=== PATIENT | male | born 1965 | race Caucasian/White ===

== ENCOUNTER 2022-07-07 10:01 | Inpatient (IN) | payer OTHER ==
[2022-07-07 13:13] VITALS: BMI 23.7
[2022-07-07] MEDS ORDERED: MAGNESIUM CITRATE 300 ML BOTTLE PO PRN (15:04)
[2022-07-07] MEDS ORDERED: IBUPROFEN 400 MG TABLET (FP) PO PRN ×2 (15:04)
[2022-07-07] MEDS ORDERED: ACETAMINOPHEN 325 MG TABLET (FP) PO PRN ×2 (15:04)
[2022-07-07] MEDS ORDERED: METHOCARBAMOL 500 MG TABLET PO PRN (15:04)
[2022-07-07] MEDS ORDERED: hydrOXYzine PAMOATE 25 MG CAPSULE (FP) PO PRN (15:04)
[2022-07-07] MEDS ORDERED: LOPERAMIDE HCL 2 MG CAPSULE PO PRN (15:04)
[2022-07-07] MEDS ORDERED: IBUPROFEN 600 MG TABLET (FP) PO PRN (15:04)
[2022-07-07] MEDS ORDERED: DICYCLOMINE HCL 10 MG CAPSULE PO PRN (15:04)
[2022-07-07] MEDS ORDERED: ONDANSETRON *ODT* 4 MG TABLET SL PRN (15:04)
[2022-07-07] MEDS ORDERED: MAGNESIUM HYDROX 2400MG/30ML ORAL SUSPENSION 30 ML CUP PO PRN (15:04)
[2022-07-07] MEDS ORDERED: guaiFENesin 200 MG/10 ML 10 ML UNIT-DOSE CUPS PO PRN (15:04)
[2022-07-07] MEDS ORDERED: P-EPHED 60MG/TRIPROLIDI 2.5MG TABLET PO PRN (15:04)
[2022-07-07] MEDS ORDERED: BISMUTH SUBSALICYLATE 524 MG/30 ML PO PRN (15:04)
[2022-07-07] MEDS ORDERED: MAG HYDROX/AL HYDROX/SIMETH 30 ML UNIT-DOSE CUP PO PRN (15:04)
[2022-07-07] MEDS ORDERED: BENZOCAINE/MENTHOL (CHLORASEPTIC ) LOZENGE MM PRN (15:04)
[2022-07-07] MEDS: MELATONIN 5 MG TABLETS PO PRN (22:14)
[2022-07-07] MEDS: THIAMINE HCL 100 MG TABLET (FP) PO SCH (22:14)
[2022-07-07] MEDS: MIRTAZAPINE 15 MG TABLET (FP) PO SCH (22:14)
[2022-07-08 07:15] VITALS: RESP 18
[2022-07-08] MEDS ORDERED: BENZTROPINE MESYLATE 1 MG TABLET PO SCH (10:00)
[2022-07-08] MEDS ORDERED: BENZTROPINE MESYLATE 2 MG TABLET PO SCH (10:00)
[2022-07-08] MEDS ORDERED: risperiDONE 2 MG TABLET PO SCH (10:00)
[2022-07-08] MEDS ORDERED: BENZTROPINE MESYLATE 0.5 MG TABLET (FP) PO SCH (11:07)
[2022-07-08] MEDS: risperiDONE 1 MG TABLET PO SCH ×2 (13:28→21:15)
[2022-07-08] MEDS: PRENATAL VITAMINS W/ FOLIC ACID TABLET (FP) PO SCH (13:29)
[2022-07-08 14:28] LABS: HEMATOCRIT 39.8 % (35.4-49); MCH 27.6 pg (25.7-33.7); MCHC 32.7 g/dl (32.0-35.9); MEAN CELL VOLUME 84.4 fl (80-96); MEAN PLT VOLUME 8.7 fl (7.5-11.1); PLATELET COUNT 246 10^3/uL (134-434); RBC 4.72 M/mm3 (4.00-5.60); RDW 14.7 % (11.9-15.9); WHITE BLOOD COUNT 7.2 K/mm3 (4.0-10.0)
[2022-07-08 14:31] LABS: CALCIUM 8.5 mg/dL (8.5-10.1)
[2022-07-08 14:32] LABS: ALBUMIN 2.8 g/dl (3.4-5.0); BLOOD UREA NITROGEN 10.8 mg/dL (7-18)
[2022-07-08 14:35] LABS: CREATININE 0.9 mg/dL (0.55-1.3)
[2022-07-08 14:37] LABS: BILIRUBIN,TOTAL 0.4 mg/dL (0.2-1); TOT PROT 6.2 g/dl (6.4-8.2)
[2022-07-08] MEDS: MIRTAZAPINE 15 MG TABLET (FP) PO SCH (21:15)
[2022-07-08] MEDS: BENZTROPINE MESYLATE 1 MG TABLET PO SCH (21:16)
[2022-07-08] MEDS: THIAMINE HCL 100 MG TABLET (FP) PO SCH (21:17)
[2022-07-09] MEDS: BENZTROPINE MESYLATE 1 MG TABLET PO SCH ×2 (09:59→22:41)
[2022-07-09] MEDS: PRENATAL VITAMINS W/ FOLIC ACID TABLET (FP) PO SCH (09:59)
[2022-07-09] MEDS: risperiDONE 1 MG TABLET PO SCH ×2 (09:59→22:41)
[2022-07-09] MEDS: MIRTAZAPINE 15 MG TABLET (FP) PO SCH (22:41)
[2022-07-09] MEDS: THIAMINE HCL 100 MG TABLET (FP) PO SCH (22:41)
[2022-07-09] MEDS: MELATONIN 5 MG TABLETS PO PRN (22:42)
[2022-07-10] MEDS: risperiDONE 1 MG TABLET PO SCH (10:32)
[2022-07-10] MEDS: PRENATAL VITAMINS W/ FOLIC ACID TABLET (FP) PO SCH (10:32)
[2022-07-10] MEDS: BENZTROPINE MESYLATE 1 MG TABLET PO SCH (10:33)
[2022-07-10 13:03] VITALS: BP 138/81; PULSE 74; TEMP 97.7
== END 2022-07-10 13:23 | disposition home or self-care (01) | DRG 896 ==
LOC: YASAS 10:01 → Y3N 15:39
PROVIDERS: ADMIT Allergy & Immunology; ATTEND Surgery
PROC: HZ2ZZZZ Detoxification Services for Substance Abuse Treatment (ICD-10-PCS; principal; 2022-07-07)
DX: F10.230 Alcohol dependence with withdrawal, uncomplicated (principal); U07.1 COVID-19; E46 Unspecified protein-calorie malnutrition; F12.20 Cannabis dependence, uncomplicated; F31.9 Bipolar disorder, unspecified; F25.9 Schizoaffective disorder, unspecified; Z68.23 Body mass index [BMI] 23.0-23.9, adult; Z87.891 Personal history of nicotine dependence; Z88.0 Allergy status to penicillin
CPT/HCPCS: 36415; 73130-TC-RT-FY; 80053; 85027; 86780; C9803-CS; J2794; U0003; U0005

== ENCOUNTER 2022-07-29 15:54 | Inpatient (IN) | payer OTHER ==
[2022-07-29 17:58] VITALS: BMI 23.0
[2022-07-29] MEDS ORDERED: MAGNESIUM CITRATE 300 ML BOTTLE PO PRN (18:31)
[2022-07-29] MEDS ORDERED: guaiFENesin 200 MG/10 ML 10 ML UNIT-DOSE CUPS PO PRN (18:31)
[2022-07-29] MEDS ORDERED: BISMUTH SUBSALICYLATE 524 MG/30 ML PO PRN (18:31)
[2022-07-29] MEDS ORDERED: BENZOCAINE/MENTHOL (CHLORASEPTIC ) LOZENGE MM PRN (18:31)
[2022-07-29] MEDS ORDERED: ONDANSETRON *ODT* 4 MG TABLET SL PRN (18:31)
[2022-07-29] MEDS ORDERED: IBUPROFEN 400 MG TABLET (FP) PO PRN (18:31)
[2022-07-29] MEDS ORDERED: LOPERAMIDE HCL 2 MG CAPSULE PO PRN (18:31)
[2022-07-29] MEDS ORDERED: P-EPHED 60MG/TRIPROLIDI 2.5MG TABLET PO PRN (18:31)
[2022-07-29] MEDS ORDERED: MAG HYDROX/AL HYDROX/SIMETH 30 ML UNIT-DOSE CUP PO PRN (18:31)
[2022-07-29] MEDS ORDERED: DICYCLOMINE HCL 10 MG CAPSULE PO PRN (18:31)
[2022-07-29] MEDS ORDERED: MAGNESIUM HYDROX 2400MG/30ML ORAL SUSPENSION 30 ML CUP PO PRN (18:31)
[2022-07-29] MEDS ORDERED: ACETAMINOPHEN 325 MG TABLET (FP) PO PRN ×2 (18:31)
[2022-07-29] MEDS: diazePAM 5 MG TABLET PO PRN (19:16)
[2022-07-29] MEDS: IBUPROFEN 600 MG TABLET (FP) PO PRN (19:16)
[2022-07-29] MEDS: diazePAM 5 MG TABLET PO SCH (22:10)
[2022-07-29] MEDS: THIAMINE HCL 100 MG TABLET (FP) PO SCH (22:10)
[2022-07-29] MEDS: MELATONIN 5 MG TABLETS PO PRN (22:11)
[2022-07-30] MEDS: diazePAM 5 MG TABLET PO SCH ×4 (05:51→22:08)
[2022-07-30] MEDS: PRENATAL VITAMINS W/ FOLIC ACID TABLET (FP) PO SCH (10:09)
[2022-07-30] MEDS: hydrOXYzine PAMOATE 25 MG CAPSULE (FP) PO PRN (10:09)
[2022-07-30] MEDS: METHOCARBAMOL 500 MG TABLET PO PRN (10:10)
[2022-07-30] MEDS ORDERED: BENZTROPINE MESYLATE 2 MG TABLET PO SCH (10:30)
[2022-07-30] MEDS: BENZTROPINE MESYLATE 1 MG TABLET PO SCH (10:43)
[2022-07-30] MEDS: risperiDONE 2 MG TABLET PO SCH (10:43)
[2022-07-30] MEDS: MELATONIN 5 MG TABLETS PO PRN (22:07)
[2022-07-30] MEDS: THIAMINE HCL 100 MG TABLET (FP) PO SCH (22:07)
[2022-07-30] MEDS: MIRTAZAPINE 15 MG TABLET (FP) PO SCH (22:07)
[2022-07-31] MEDS: diazePAM 5 MG TABLET PO SCH ×2 (06:01→17:44)
[2022-07-31] MEDS: hydrOXYzine PAMOATE 25 MG CAPSULE (FP) PO PRN (06:01)
[2022-07-31 06:14] VITALS: RESP 18
[2022-07-31] MEDS: diazePAM 5 MG TABLET PO PRN (10:08)
[2022-07-31] MEDS: BENZTROPINE MESYLATE 1 MG TABLET PO SCH (10:09)
[2022-07-31] MEDS: PRENATAL VITAMINS W/ FOLIC ACID TABLET (FP) PO SCH (10:09)
[2022-07-31] MEDS: risperiDONE 2 MG TABLET PO SCH (10:09)
[2022-07-31] MEDS: THIAMINE HCL 100 MG TABLET (FP) PO SCH (22:13)
[2022-07-31] MEDS: MELATONIN 5 MG TABLETS PO PRN (22:13)
[2022-07-31] MEDS: METHOCARBAMOL 500 MG TABLET PO PRN (22:13)
[2022-07-31] MEDS: IBUPROFEN 600 MG TABLET (FP) PO PRN (22:13)
[2022-07-31] MEDS: MIRTAZAPINE 15 MG TABLET (FP) PO SCH (22:13)
[2022-08-01] MEDS ORDERED: diazePAM 5 MG TABLET PO ONE (06:00)
[2022-08-01 08:53] VITALS: BP 130/62; PULSE 73; TEMP 97.1
[2022-08-01] MEDS: PRENATAL VITAMINS W/ FOLIC ACID TABLET (FP) PO SCH (10:05)
[2022-08-01] MEDS: BENZTROPINE MESYLATE 1 MG TABLET PO SCH (10:05)
[2022-08-01] MEDS: risperiDONE 2 MG TABLET PO SCH (10:05)
== END 2022-08-01 11:17 | disposition home or self-care (01) | DRG 896 ==
LOC: YASAS 15:54 → Y3N 17:31
PROVIDERS: ADMIT Allergy & Immunology; ATTEND Surgery
PROC: HZ2ZZZZ Detoxification Services for Substance Abuse Treatment (ICD-10-PCS; principal; 2022-07-29)
DX: F10.230 Alcohol dependence with withdrawal, uncomplicated (principal); U07.1 COVID-19; F12.20 Cannabis dependence, uncomplicated; F10.282 Alcohol dependence with alcohol-induced sleep disorder; F10.280 Alcohol dependence with alcohol-induced anxiety disorder; F10.24 Alcohol dependence with alcohol-induced mood disorder; F25.0 Schizoaffective disorder, bipolar type; Z88.0 Allergy status to penicillin
CPT/HCPCS: C9803-CS; U0003; U0005

== ENCOUNTER 2024-03-31 13:15 | Inpatient (IN) | payer OTHER ==
[2024-03-31 14:01] VITALS: BMI 23.7
[2024-03-31] MEDS ORDERED: P-EPHED 60MG/TRIPROLIDI 2.5MG TABLET PO PRN (14:19)
[2024-03-31] MEDS ORDERED: BENZONATATE 200 MG CAPSULE PO PRN (14:19)
[2024-03-31] MEDS ORDERED: DOCUSATE SODIUM 100 MG CAPSULE (FP) PO PRN (14:19)
[2024-03-31] MEDS ORDERED: BENZOCAINE/MENTHOL (CHLORASEPTIC ) LOZENGE MM PRN (14:19)
[2024-03-31] MEDS ORDERED: IBUPROFEN 600 MG TABLET (FP) PO PRN (14:19)
[2024-03-31] MEDS ORDERED: MAGNESIUM HYDROX 2400MG/30ML ORAL SUSPENSION 30 ML CUP PO PRN (14:19)
[2024-03-31] MEDS ORDERED: ACETAMINOPHEN 325 MG TABLET (FP) PO PRN (14:19)
[2024-03-31] MEDS ORDERED: IBUPROFEN 400 MG TABLET (FP) PO PRN (14:19)
[2024-03-31] MEDS ORDERED: MAG HYDROX/AL HYDROX/SIMETH 30 ML UNIT-DOSE CUP PO PRN (14:19)
[2024-03-31] MEDS ORDERED: guaiFENesin 600 MG TABLET.ER (FP) PO PRN (14:19)
[2024-03-31] MEDS ORDERED: LOPERAMIDE HCL 2 MG CAPSULE PO PRN (14:19)
[2024-03-31] MEDS ORDERED: POLYETHYLENE GLYCOL (HEALTHYLAX) 3350 17 GM PACKET PO PRN (14:19)
[2024-03-31] MEDS: THIAMINE 100 MG TABLET PO SCH (21:25)
[2024-03-31] MEDS: MELATONIN 5 MG TABLETS PO SCH (21:25)
[2024-03-31 23:23] LABS: EPI CELLS 9 /uL (0-25.1); HYALINE CASTS 1 /uL (0-3.1); URINE APPEARANCE TURBID; URINE BACTERIA 57 /uL (0-1359); URINE BILIRUBIN NEGATIVE (NEGATIVE); URINE COLOR YELLOW; URINE GLUCOSE (UA) NEGATIVE (NEGATIVE); URINE KETONE NEGATIVE (NEGATIVE); URINE LEUK ESTERASE TRACE (NEGATIVE); URINE NITRITE NEGATIVE (NEGATIVE); URINE PROTEIN NEGATIVE (NEGATIVE); URINE RBC 10 /uL (0-23.9); URINE UROBILINOGEN 0.2 mg/dL (0.2-1.0); URINE WBC 27 /uL (0-25.8)
[2024-04-01] MEDS: PRENATAL VITAMINS W/ FOLIC ACID TABLET (FP) PO SCH (10:20)
[2024-04-01 11:51] LABS: HEMATOCRIT 40.7 % (35.4-49); HEMOGLOBIN 13.6 GM/dL (11.7-16.9); MCHC 33.4 g/dl (32.0-35.9); MEAN CELL VOLUME 80.9 fl (80-96); MEAN PLT VOLUME 9.1 fl (7.5-11.1); PLATELET COUNT 188 10^3/uL (134-434); RBC 5.04 M/mm3 (4.00-5.60); RDW 15.5 % (11.9-15.9); WHITE BLOOD COUNT 7.6 K/mm3 (4.0-10.0)
[2024-04-01 11:54] LABS: POTASSIUM 3.9 mmol/L (3.5-5.1)
[2024-04-01 12:13] LABS: CALCIUM 9.1 mg/dL (8.5-10.1)
[2024-04-01 12:14] LABS: ALBUMIN 3.6 g/dl (3.4-5.0)
[2024-04-01 12:17] LABS: CREATININE 0.9 mg/dL (0.55-1.3)
[2024-04-01 12:19] LABS: BILIRUBIN,TOTAL 0.7 mg/dL (0.2-1); TOT PROT 6.9 g/dl (6.4-8.2)
[2024-04-01] MEDS: risperiDONE 2 MG TABLET PO SCH (21:29)
[2024-04-01] MEDS: MIRTAZAPINE 30 MG TABLET PO SCH (21:29)
[2024-04-01] MEDS: BENZTROPINE MESYLATE 1 MG TABLET PO SCH (21:56)
[2024-04-01] MEDS ORDERED: BENZTROPINE MESYLATE 0.5 MG TABLET (FP) PO SCH (22:00)
[2024-04-09] MEDS: NALTREXONE HCL 50 MG TABLET PO ONE (11:35)
[2024-04-10] MEDS: NALTREXONE HCL 50 MG TABLET PO SCH (09:39)
[2024-04-14] MEDS: NALTREXONE MICROSPHERES (VIVITROL) 380 MG DISP.SYRIN IM ONE (07:00)
[2024-04-28 07:36] VITALS: BP 129/87; PULSE 70; RESP 18; TEMP 97.9
== END 2024-04-28 10:32 | disposition home or self-care (01) | DRG 895 ==
LOC: YASAS 13:15 → Y3NR 15:54 → Y3E 04-01 13:17
PROVIDERS: ADMIT Allergy & Immunology; ATTEND Psychiatry & Neurology Pain Medicine
PROC: HZ42ZZZ Group Counseling for Substance Abuse Treatment, Cognitive-Behavioral (ICD-10-PCS; principal; 2024-03-31)
DX: F10.20 Alcohol dependence, uncomplicated (principal); Z59.00 Homelessness unspecified; F12.20 Cannabis dependence, uncomplicated; F10.282 Alcohol dependence with alcohol-induced sleep disorder; F10.280 Alcohol dependence with alcohol-induced anxiety disorder; F10.24 Alcohol dependence with alcohol-induced mood disorder; F31.9 Bipolar disorder, unspecified; F25.9 Schizoaffective disorder, unspecified; G47.00 Insomnia, unspecified
CPT/HCPCS: 36415; 71045-TC-FY; 80053; 80305; 80307; 81003; 85027; 86780; 87811; 93005; 93010; J2315